=== PATIENT | female | born 1935 | race Caucasian/White ===

== ENCOUNTER → 2017-07-04 | Day surgery (SDC) | payer MEDICARE ==
[2017-07-01 11:42] LABS: BASO % 0.7 % (0.0-1.0); EOS # 0.1 10*3/uL (0.0-0.4); EOS % 2.3 % (1.0-4.0); HEMATOCRIT 34.4 % (37.0-47.0); HEMOGLOBIN 10.7 g/dl (12.0-16.0); LYMPH # 1.9 10*3/uL (1.3-4.4); LYMPH % 44.1 % (27.0-41.0); MEAN CORPUSCULAR HGB 29.6 pg (27.0-31.0); MEAN CORPUSCULAR HGB CONC 31.1 g/dl (33.0-37.0); MEAN PLATELET VOLUME 10.8 fl (9.6-12.3); MONO # 0.4 10*3/uL (0.1-1.0); MONO % 10.1 % (3.0-9.0); NEUT # 1.9 10*3/uL (2.3-7.9); NEUT % 42.8 % (47.0-73.0); PLATELET COUNT AUTOMATED 262 10*3/uL (130-400); RED BLOOD COUNT 3.62 10*6/uL (4.10-5.10); RED CELL DISTRI WIDTH 15.1 % (0-14.5); WHITE BLOOD COUNT 4.4 10*3/uL (4.8-10.8)
[2017-07-01 11:47] LABS: BILIRUBIN NEGATIVE (NEGATIVE); BLOOD NEGATIVE (NEGATIVE); CLARITY SL CLOUDY (CLEAR); COLOR YELLOW (YELLOW); GLUCOSE NEGATIVE (NEGATIVE); KETONE NEGATIVE (NEGATIVE); LEUKO ESTERASE NEGATIVE (NEGATIVE); NITRITE NEGATIVE (NEGATIVE); PH 5.5 (5.0-9.0); SPECIFIC GRAVITY >= 1.030 (1.005-1.030); UROBILINOGEN 0.2 E.U./dl (0.2-1.0)
[2017-07-01 12:11] LABS: CHLORIDE 104 mmol/L (98-107); CREATININE 0.71 mg/dL (0.55-1.02); POTASSIUM 3.9 mmol/L (3.5-5.1); SODIUM 140 mmol/L (136-145)
[2017-07-01 12:12] LABS: BUN 19 mg/dl (7-24)
[2017-07-01 12:15] LABS: ACT PARTIAL THROMBO TIME 22.7 SECONDS (20.8-31.5)
[2017-07-01 12:49] LABS: MUCOUS 2+
[2017-07-01 12:50] LABS: WBC 0-2 wbc/hpf (0-5)
[~2017-07-04] VITALS: Ht 160 cm; Wt 63.5 kg
[~2017-07-04] MED LIST: ATORVASTATIN CA20 M1 PO; LISINOPRIL30 MG PO; Lovenox40 MG/0.4 IJ; NORCO 5-325 TA1 EACH PO
--- NOTE | ~2017-07-04 | O ---
[place], [place] OPERATIVE NOTE NAME: WILDA LANGLEY UNIT #: [id number] ROOM: DOCTOR: JOHN PERKINS MD BIRTHDATE: [birth year] DOS: 07/04/2017 PREOPERATIVE DIAGNOSIS: Ovarian cancer. POSTOPERATIVE DIAGNOSIS: Ovarian cancer. PROCEDURE: Left internal jugular MediPort placement. SURGEON: John Perkins M.D. NOC TECHNICIAN: REMBERTO. ANESTHESIA: MAC with local. INDICATIONS: This is an 81-year-old lady who was recently diagnosed with ovarian cancer, who desires a MediPort placement for the purposes of chemotherapy. The procedure and its complications were explained to the patient in detail preoperatively. Complications that were discussed included but were not limited to bleeding, infection, hemothorax, pneumothorax and damage to underlying vital structures. She agreed to proceed. DESCRIPTION OF PROCEDURE: After identifying the patient, the patient was brought to the operating suite and laid in the supine position. After time-out procedure was called, the parts were then painted and draped in the usual sterile fashion and IV sedation was administered by the anesthesia team. With the help of an ultrasound, the left internal jugular vein was identified and accessed with the help of Seldinger technique. A guidewire was placed and was confirmed to be in good position via fluoroscopy. Thereafter, 2 inches below the left clavicle, local anesthesia was infiltrated in a transverse fashion and an incision was made and a small pocket was created for the placement of the port. Via this incision site, the catheter was passed on an introducer to the area in the neck where the incision was made for the internal jugular vein access site. Guidewire was passed through sheath and dilator and the catheter was placed via the sheath into the superior vena cava and was confirmed to be in good position on fluoroscopy. Thereafter, the catheter was cut to size and was attached to the port. The port itself was flushed with heparin and then aspirated and was found to have a good flow and good aspiration of blood. Thereafter, the port was then fixed to the underlying fascia with the help of 3-0 Prolene in an interrupted fashion. The subcutaneous tissue was approximated with the help of 3-0 Vicryl in a running fashion and the skin edges were approximated with the help of 4-0 Vicryl in a subcuticular running fashion. Dressings were placed. The patient tolerated the procedure well. There were no complications. The port was tested again by injecting heparin through the skin into the port and this was found to have good return of blood and also good flow. A chest x-ray was ordered for confirmation in the postoperative recovery room. There were no complications. Dr. John Perkins, the attending surgeon, was present throughout the operating case. [place], [place] OPERATIVE NOTE NAME: WILDA LANGLEY UNIT #: [id number] ROOM: DOCTOR: JOHN PERKINS MD BIRTHDATE: [birth year] John Perkins MD CM:OPRECORD:OPERATIVE NOTE [id number] JOHN PERKINS MD 07/04/17 1010 interface
[2017-07-04 08:40] VITALS: BP 132/74
[2017-07-04 09:43] VITALS: BP 118/55
[2017-07-04 09:58] VITALS: BP 122/59
[2017-07-04 10:13] VITALS: BP 112/79
== END | disposition home or self-care (01) ==
LOC: SDC 07-01 10:15
PROVIDERS: Surgery
DX: C56.2 Malignant neoplasm of left ovary (principal); I10 Essential (primary) hypertension; E78.00 Pure hypercholesterolemia, unspecified; Z90.49 Acquired absence of other specified parts of digestive tract; Z90.710 Acquired absence of both cervix and uterus; Z79.899 Other long term (current) drug therapy; Z98.890 Other specified postprocedural states

== ENCOUNTER → 2017-09-18 | Outpatient (CLI) | payer MEDICARE ==
[2017-09-18] VITALS (7 sets, daily range): BP systolic 103–126; BP diastolic 32–69
[~2017-09-18] MED LIST changes: +ADVIL200 M1 PO; +ALENDRONATE SOD70 M1 PO; +ASPIRIN81 M1 PO; +CLARITIN10 MG PO; +FLONASE ALLERG9.9 ML NAS; +OXYCODONE HCL5 MG PO; +VITAMIN D50000 UNIT PO
== END | disposition home or self-care (01) ==
LOC: TRNFUSION 01:00
DX: C56.1 Malignant neoplasm of right ovary (principal)

== ENCOUNTER 2017-10-28 11:55 | Inpatient (IN) | payer MEDICARE ==
[~2017-10-28] VITALS: Ht 160 cm; Wt 61.3 kg
--- NOTE | ~2017-10-28 | CON ---
[place], [place] REPORT OF CONSULTATION NAME: WILDA LANGLEY UNIT #: [id number] ROOM: [id number] DOCTOR: DESIRE SEARS MD BIRTHDATE: [birth year] DOS: 10/29/2017 HISTORY OF PRESENT ILLNESS: The patient is an pleasant 82-year-old woman with a history of ovarian cancer, undergoing chemotherapy. She started complaining of some vomiting, diarrhea, and nausea. She was supposed to get a chemotherapy yesterday, but was advised to go to the Emergency Room, where she was admitted for the above problem and consulted. PAST MEDICAL HISTORY: Significant for recent diagnosis of ovarian cancer, undergoing treatment; history of hypertension, hyperlipidemia, and left ovarian cyst. PAST SURGICAL HISTORY: Appendectomy, hysterectomy, removal of ovarian cyst, history of tonsillectomy, adenoidectomy, and left-sided MediPort on 06/17/2017. SOCIAL HISTORY: No smoking, drinking, or drug abuse. FAMILY HISTORY: Father diseased aged 90, cause unknown. Mother diseased aged 80 of Alzheimer's. ALLERGIES: CONTRAST, SULFA, CODEINE, AND STATINS. MEDICATIONS: On alendronate, aspirin, atorvastatin, calcium, vitamin D, Flonase, lisinopril, loratadine, and ondansetron. REVIEW OF SYSTEMS: CONSTITUTIONAL: No chills. No fatigue. No fever. No loss of appetite. No night sweats. No weakness. No weight loss. HEENT: No trouble swallowing. No loss of smell. No loss of hearing. No double vision. No pain. No discharge. ENT AND RESPIRATORY: No wheeze. No sore throat. No change in voice. No hearing loss. No nose bleed. No cough. No trouble breathing through nose. No shortness of breath. No coughing up blood. No epistaxis. CARDIOVASCULAR: No chest pain. No dizziness. No irregular heartbeat. No leg edema. No pain in legs while walking. No palpitations. No shortness of breath. DERMATOLOGIC: No acne. No hives. No laceration. No mole. No rash. ENDOCRINE: No cold intolerance. No diabetes. No fatigue. No hot flashes. No polydipsia. No polyuria. No urinating frequently. No weight loss. HEMATOLOGIC AND LYMPH: No fatigue. No easy bruising. GASTROENTEROLOGIC: No change in bowel habits. No indigestion. No frequent bloating. No vomiting blood. No abdominal cramping. No nausea. No heartburn. No vomiting. No abdominal pain. No dysphagia. No diarrhea. No constipation. No blood in stool. FEMALE REPRODUCTIVE: No vaginal itching. No difficulty urinating. No heavy periods. No dyspareunia. No sexually active. No dysmenorrhea. No pelvic pain. No breast pain. No nipple discharge. No abnormal vaginal discharge. No hot flashes. MUSCULOSKELETAL: No back pain. No muscle pain or weakness. No neck pain. No tingling/numbness. No swelling/bruising. No osteoporosis treatment. [place], [place] REPORT OF CONSULTATION NAME: WILDA LANGLEY UNIT #: [id number] ROOM: [facility] DOCTOR: DESIRE SEARS MD BIRTHDATE: [birth year] OPHTHALMOLOGIC: No double vision. No diminished vision. No loss of vision. UROLOGIC: No dysuria. No frequent nighttime urination. No irregular periods. No pain with urination. No difficulty urinating. No blood in urine. No frequent urination. No urinary incontinence. NEUROLOGIC: No loss of sensation in specific body area. No vertigo. No burning pain in feet. No trouble with balance. No trouble with coordination. No loss of consciousness. No loss of feeling/power. No confusion. No headache. No tingling/numbness. PSYCHOLOGIC: No tinnitus. No headaches. No shortness of breath. No weight decrease. No nausea. No vomiting. No abdominal discomfort. No constipation. No diarrhea. No depression. No anxiety. PHYSICAL EXAMINATION: GENERAL: A pleasant woman in no apparent distress. VITAL SIGNS: Stable. She is afebrile. HEENT: Oral mucosa appears intact. The external ears are normal in appearance. Nares are patent without lesions, exudates, erythema, or inflammation. Tongue is symmetrical. Uvula is midline. NECK AND THYROID: Neck supple without palpable masses. Trachea is midline. No thyromegaly. No carotid bruit or JVD. BREASTS: Normal. Nipples unremarkable. No drainage. No lumps felt on either side. HEART: Normal S1, S2, without significant murmur, rub, or gallop. LUNGS: Clear to auscultation and percussion with good air entry bilaterally. The patient is breathing easily without the use of accessory muscles. Diaphragmatic excursions are intact. ABDOMEN: No costovertebral angle tenderness. Soft. No organomegaly or masses. Nontender. No hernias present. Liver and spleen are not palpable. LYMPHATIC: No adenopathy noted in the cervical, supraclavicular, axillary, or inguinal regions. NEUROLOGIC: Nonfocal. Oriented to person, place, and time. MENTAL STATUS: Appropriate for mood and affect. PERIPHERAL PULSES: No varicosities. Femoral and pedal pulses are palpable. EXTREMITIES: Without cyanosis, clubbing, or edema. No gross anomalies. LABORATORY DATA: Sodium 137, potassium 4.2, chloride 103, bicarbonate 25, creatinine 1.78, calcium 8.8. AST is 18 and ALT is 23. White count of 2.2, hemoglobin 9.4, hematocrit 29.1, and platelet count of 226. ASSESSMENT: 1. Dehydration. 2. Diarrhea. 3. History of colon cancer. 4. Anemia of neoplastic disorder. 5. Leukopenia secondary to chemotherapy. PLAN: IV fluids transfusion p.r.n., antidiarrheal, etc. We will hold the chemotherapy till her overall condition improves. I had detailed discussion with the patient about it, seemed to understand it. Ample time was given to the patient to ask me questions. We will follow. [place], [place] REPORT OF CONSULTATION NAME: WILDA LANGLEY UNIT #: [id number] ROOM: [facility] DOCTOR: DESIRE SEARS MD BIRTHDATE: [birth year] Thanks for consulting and letting me to participate in the care of this interesting patient. DESIRE SEARS MD CM:CONSTR:REPORT OF CONSULTATION 1408 10/30/17 0215 interface
[2017-10-28 12:06] VITALS: BP 131/42
[2017-10-28 12:32] LABS: BASO % 0.5 % (0.0-1.0); HEMATOCRIT 29.1 % (37.0-47.0); HEMOGLOBIN 9.4 g/dl (12.0-16.0); LYMPH # 0.9 10*3/uL (1.3-4.4); LYMPH % 40.1 % (27.0-41.0); MEAN CELL VOLUME 92.7 fl (81.0-99.0); MEAN CORPUSCULAR HGB 29.9 pg (27.0-31.0); MEAN CORPUSCULAR HGB CONC 32.3 g/dl (33.0-37.0); MEAN PLATELET VOLUME 10.9 fl (9.6-12.3); MONO # 0.2 10*3/uL (0.1-1.0); MONO % 7.4 % (3.0-9.0); NEUT # 1.1 10*3/uL (2.3-7.9); NEUT % 51.5 % (47.0-73.0); PLATELET COUNT AUTOMATED 226 10*3/uL (130-400); RED BLOOD COUNT 3.14 10*6/uL (4.10-5.10); RED CELL DISTRI WIDTH 16.7 % (0-14.5); WHITE BLOOD COUNT 2.2 10*3/uL (4.8-10.8)
[2017-10-28 12:41] LABS: ACT PARTIAL THROMBO TIME 20.7 SECONDS (20.8-31.5)
[2017-10-28 12:53] LABS: ALBUMIN 3.6 gm/dl (3.1-4.5); ALKALINE PHOSPHATASE 48 U/L (45-117); BUN 50 mg/dl (7-24); CHLORIDE 103 mmol/L (98-107); CREATININE 1.78 mg/dL (0.55-1.02); POTASSIUM 4.2 mmol/L (3.5-5.1); SGOT/AST 18 IU/L (3-35); SGPT/ALT 23 U/L (12-78); SODIUM 137 mmol/L (136-145); TOTAL PROTEIN 6.8 gm/dL (6.4-8.2)
[2017-10-28 12:54] LABS: TROPONIN I < 0.015 ng/ml (<0.045)
[2017-10-28 15:06] LABS: BILIRUBIN NEGATIVE (NEGATIVE); BLOOD NEGATIVE (NEGATIVE); CLARITY CLEAR (CLEAR); COLOR YELLOW (YELLOW); GLUCOSE NEGATIVE (NEGATIVE); KETONE NEGATIVE (NEGATIVE); LEUKO ESTERASE TRACE (NEGATIVE); NITRITE NEGATIVE (NEGATIVE); PH 5.5 (5.0-9.0); SPECIFIC GRAVITY <= 1.005 (1.005-1.030); UROBILINOGEN 0.2 E.U./dl (0.2-1.0)
[2017-10-28 15:12] VITALS: BP 130/67
[2017-10-28 15:12] LABS: BACTERIA 2+; RBC 0-2 rbc/hpf (0-2)
[2017-10-28] MEDS ORDERED: ZOFRAN8 M1 PO (15:40)
[2017-10-28 18:15] VITALS: BP 130/67
[2017-10-28 20:00] VITALS: BP 127/46
[2017-10-29] VITALS: BP 107/42
[2017-10-29 06:24] LABS: HEMATOCRIT 24.7 % (37.0-47.0); HEMOGLOBIN 7.9 g/dl (12.0-16.0); MEAN CELL VOLUME 94.3 fl (81.0-99.0); MEAN CORPUSCULAR HGB 30.2 pg (27.0-31.0); MEAN PLATELET VOLUME 11.4 fl (9.6-12.3); PLATELET COUNT AUTOMATED 182 10*3/uL (130-400); RED BLOOD COUNT 2.62 10*6/uL (4.10-5.10); RED CELL DISTRI WIDTH 16.9 % (0-14.5); WHITE BLOOD COUNT 2.5 10*3/uL (4.8-10.8)
[2017-10-29 06:51] LABS: TOTAL CELLS COUNTED 100 #CELLS
[2017-10-29 06:52] LABS: ACANTHOCYTES FEW; OVALOCYTES FEW; PLATELET SUFFICIENCY NORMAL (NORMAL)
[2017-10-29 07:01] LABS: CHLORIDE 110 mmol/L (98-107); CHOLESTEROL 147 mg/dL (<200); CREATININE 0.93 mg/dL (0.55-1.02); HDL CHOLESTEROL 53 mg/dl (40-60); LDL CHOLESTEROL 68 mg/dL (9-159); PHOSPHOROUS 3.1 mg/dL (2.5-4.9); POTASSIUM 4.8 mmol/L (3.5-5.1); SODIUM 141 mmol/L (136-145); TRIGLYCERIDES 130 mg/dl (<150); VLDL CHOLESTEROL 26 mg/dL (6-40)
[2017-10-29 07:24] LABS: BUN 33 mg/dl (7-24)
[2017-10-29 07:40] LABS: VITAMIN D, 25-HYDROXY 28.2 ng/mL (30-100)
[2017-10-29 08:00] VITALS: BP 130/52
[2017-10-29 12:00] VITALS: BP 116/42
== END 2017-10-29 16:35 | disposition home or self-care (01) | DRG 683 ==
LOC: ED 11:55 → EDHOLD 15:29 → 4E 15:29
PROVIDERS: Internal Medicine Nephrology; Nurse Practitioner Family
DX: N17.0 Acute kidney failure with tubular necrosis (principal); C56.9 Malignant neoplasm of unspecified ovary; D70.1 Agranulocytosis secondary to cancer chemotherapy; D63.0 Anemia in neoplastic disease; E83.41 Hypermagnesemia; E86.0 Dehydration; E78.5 Hyperlipidemia, unspecified; I10 Essential (primary) hypertension; T45.1X5A Adverse effect of antineoplastic and immunosuppressive drugs, initial encounter; R53.81 Other malaise; R73.9 Hyperglycemia, unspecified; R27.0 Ataxia, unspecified; Y92.89 Other specified places as the place of occurrence of the external cause; Z88.2 Allergy status to sulfonamides; Z88.8 Allergy status to other drugs, medicaments and biological substances; Z91.041 Radiographic dye allergy status; Z79.899 Other long term (current) drug therapy; Z90.49 Acquired absence of other specified parts of digestive tract; Z90.710 Acquired absence of both cervix and uterus; Z82.0 Family history of epilepsy and other diseases of the nervous system; Z79.82 Long term (current) use of aspirin

== ENCOUNTER → 2017-11-07 | Outpatient (CLI) | payer MEDICARE ==
[2017-11-07] VITALS (10 sets, daily range): BP systolic 112–142; BP diastolic 40–71
[~2017-11-07] MED LIST changes: +ZOFRAN8 M1 PO
== END | disposition home or self-care (01) ==
LOC: TRNFUSION 01:30
DX: C56.1 Malignant neoplasm of right ovary (principal)

== ENCOUNTER → 2017-11-22 | Outpatient (CLI) | payer MEDICARE ==
[2017-11-22 09:37] LABS: HEMATOCRIT 31.6 % (37.0-47.0); MEAN CORPUSCULAR HGB 30.4 pg (27.0-31.0); MEAN CORPUSCULAR HGB CONC 31.6 g/dl (33.0-37.0); MEAN PLATELET VOLUME 10.5 fl (9.6-12.3); PLATELET COUNT AUTOMATED 195 10*3/uL (130-400); RED BLOOD COUNT 3.29 10*6/uL (4.10-5.10); RED CELL DISTRI WIDTH 17.3 % (0-14.5)
[2017-11-22 10:33] LABS: BASOPHILS 2 % (0-1); PLATELET SUFFICIENCY NORMAL (NORMAL); TOTAL CELLS COUNTED 100 #CELLS
== END | disposition home or self-care (01) ==
LOC: LAB 08:32
PROVIDERS: Internal Medicine Hematology & Oncology
DX: C56.1 Malignant neoplasm of right ovary (principal)

== ENCOUNTER → 2018-01-02 | Outpatient (CLI) | payer MEDICARE ==
[~2018-01-02] MED LIST changes: +CEFUROXIME AXE500 MG PO; +PYRIDIUM200 M1 PO
[2018-01-02 09:30] VITALS: BP 136/46
[2018-01-02 11:20] VITALS: BP 121/45
[2018-01-02 11:45] VITALS: BP 129/36
[2018-01-02 12:15] VITALS: BP 115/35
[2018-01-02 14:15] VITALS: BP 107/44
[2018-01-02 14:45] VITALS: BP 110/46
[2018-01-02 16:41] LABS: BASO % 0.2 % (0.0-1.0); EOS % 0.4 % (1.0-4.0); HEMATOCRIT 32.9 % (37.0-47.0); HEMOGLOBIN 11.1 g/dl (12.0-16.0); LYMPH # 1.6 10*3/uL (1.3-4.4); LYMPH % 33.3 % (27.0-41.0); MEAN CELL VOLUME 97.6 fl (81.0-99.0); MEAN CORPUSCULAR HGB 32.9 pg (27.0-31.0); MEAN CORPUSCULAR HGB CONC 33.7 g/dl (33.0-37.0); MEAN PLATELET VOLUME 10.7 fl (9.6-12.3); MONO # 0.4 10*3/uL (0.1-1.0); MONO % 8.8 % (3.0-9.0); NEUT # 2.8 10*3/uL (2.3-7.9); NEUT % 57.1 % (47.0-73.0); PLATELET COUNT AUTOMATED 242 10*3/uL (130-400); RED BLOOD COUNT 3.37 10*6/uL (4.10-5.10); RED CELL DISTRI WIDTH 19.4 % (0-14.5); WHITE BLOOD COUNT 4.9 10*3/uL (4.8-10.8)
== END | disposition home or self-care (01) ==
LOC: LAB 09:06 → TRNFUSION 09:30
PROVIDERS: Internal Medicine Hematology & Oncology
DX: C56.1 Malignant neoplasm of right ovary (principal)

== ENCOUNTER 2018-01-20 12:17 | Emergency (ER) | payer MEDICARE ==
[~2018-01-20] VITALS: Ht 160 cm; Wt 61.2 kg
[~2018-01-20 12:17] MED LIST changes: -CEFUROXIME AXE500 MG PO; -PYRIDIUM200 M1 PO
[2018-01-20 12:49] LABS: BILIRUBIN NEGATIVE (NEGATIVE); BLOOD TRACE-INTACT (NEGATIVE); CLARITY CLOUDY (CLEAR); COLOR YELLOW (YELLOW); GLUCOSE NEGATIVE (NEGATIVE); KETONE TRACE (NEGATIVE); LEUKO ESTERASE 2+ (NEGATIVE); NITRITE NEGATIVE (NEGATIVE); PH 5.5 (5.0-9.0); SPECIFIC GRAVITY 1.025 (1.005-1.030); UROBILINOGEN 0.2 E.U./dl (0.2-1.0)
[2018-01-20 13:00] LABS: BACTERIA 2+; MUCOUS 1+; WBC TNTC wbc/hpf (0-5)
[2018-01-20 13:15] LABS: BASO % 0.5 % (0.0-1.0); EOS % 0.3 % (1.0-4.0); HEMATOCRIT 37.4 % (37.0-47.0); HEMOGLOBIN 12.1 g/dl (12.0-16.0); LYMPH % 26.3 % (27.0-41.0); MEAN CELL VOLUME 101.1 fl (81.0-99.0); MEAN CORPUSCULAR HGB 32.7 pg (27.0-31.0); MEAN CORPUSCULAR HGB CONC 32.4 g/dl (33.0-37.0); MEAN PLATELET VOLUME 11.4 fl (9.6-12.3); MONO # 0.2 10*3/uL (0.1-1.0); MONO % 6.2 % (3.0-9.0); NEUT # 2.6 10*3/uL (2.3-7.9); NEUT % 66.4 % (47.0-73.0); PLATELET COUNT AUTOMATED 135 10*3/uL (130-400); RED CELL DISTRI WIDTH 17.2 % (0-14.5); WHITE BLOOD COUNT 3.9 10*3/uL (4.8-10.8)
[2018-01-20 13:24] LABS: ACT PARTIAL THROMBO TIME 21.1 SECONDS (20.8-31.5)
[2018-01-20 13:33] LABS: ALBUMIN 3.8 gm/dl (3.1-4.5); ALKALINE PHOSPHATASE 51 U/L (45-117); BUN 31 mg/dl (7-24); CHLORIDE 101 mmol/L (98-107); CREATININE 0.96 mg/dL (0.55-1.02); POTASSIUM 3.6 mmol/L (3.5-5.1); SGOT/AST 18 IU/L (3-35); SGPT/ALT 25 U/L (12-78); SODIUM 140 mmol/L (136-145); TOTAL PROTEIN 7.3 gm/dL (6.4-8.2)
[2018-01-20] MEDS ORDERED: CEFUROXIME AXE500 MG PO (13:35)
[2018-01-20] MEDS ORDERED: PYRIDIUM200 M1 PO (13:35)
== END 2018-01-20 13:36 | disposition home or self-care (01) ==
LOC: ED 12:17
PROVIDERS: Emergency Medicine
DX: N39.0 Urinary tract infection, site not specified (principal); I12.9 Hypertensive chronic kidney disease with stage 1 through stage 4 chronic kidney disease, or unspecified chronic kidney disease; N18.3 Chronic kidney disease, stage 3 (moderate); E78.5 Hyperlipidemia, unspecified; Z88.2 Allergy status to sulfonamides; Z88.8 Allergy status to other drugs, medicaments and biological substances; Z79.899 Other long term (current) drug therapy; Z79.82 Long term (current) use of aspirin

== ENCOUNTER → 2018-03-03 | Outpatient (CLI) | payer MEDICARE ==
[~2018-03-03] MED LIST changes: +CEFUROXIME AXE500 MG PO; +PYRIDIUM200 M1 PO
== END | disposition home or self-care (01) ==
LOC: LAB 11:39 → MEDIPORT 12:00
DX: C56.1 Malignant neoplasm of right ovary (principal)

== ENCOUNTER 2021-03-01 15:05 | Emergency (ER) | payer MEDICARE ==
[~2021-03-01] VITALS: Wt 61.2 kg
== END 2021-03-01 18:55 | disposition home or self-care (01) ==
LOC: ED 15:05
DX: S80.01XA Contusion of right knee, initial encounter (principal); Z90.49 Acquired absence of other specified parts of digestive tract; Z90.710 Acquired absence of both cervix and uterus; Z98.890 Other specified postprocedural states; Z79.82 Long term (current) use of aspirin; Z79.899 Other long term (current) drug therapy; Z88.2 Allergy status to sulfonamides; Z88.8 Allergy status to other drugs, medicaments and biological substances; W18.30XA Fall on same level, unspecified, initial encounter; Y93.89 Activity, other specified; Y92.89 Other specified places as the place of occurrence of the external cause; Y99.9 Unspecified external cause status

== ENCOUNTER → 2022-01-08 | Outpatient (CLI) | payer MEDICARE | END | disposition home or self-care (01) | LOC: RAD 14:41 | PROVIDERS: ATTEND Internal Medicine | DX: M16.0 Bilateral primary osteoarthritis of hip (principal); M51.37 Other intervertebral disc degeneration, lumbosacral region ==

== ENCOUNTER 2022-02-16 10:14 | Inpatient (IN) | payer MEDICARE ==
[~2022-02-16] VITALS: Ht 165.1 cm; Wt 63.0 kg
[2022-02-16 10:18] VITALS: BP 137/62
[2022-02-16 10:56] LABS: HEMATOCRIT 38.2 % (37.0-47.0); MEAN CELL VOLUME 93.4 fl (81.0-99.0); MEAN CORPUSCULAR HGB 29.8 pg (27.0-31.0); MEAN CORPUSCULAR HGB CONC 31.9 g/dl (33.0-37.0); MEAN PLATELET VOLUME 10.5 fl (9.6-12.3); PLATELET COUNT AUTOMATED 205 10*3/uL (130-400); RED BLOOD COUNT 4.09 10*6/uL (4.10-5.10); RED CELL DISTRI WIDTH 13.6 % (0-14.5); WHITE BLOOD COUNT 8.3 10*3/uL (4.8-10.8)
[2022-02-16 10:57] LABS: MANUAL DIFF REFLEX YES
[2022-02-16 11:07] LABS: ACT PARTIAL THROMBO TIME 24.8 SECONDS (20.0-32.1)
[2022-02-16 11:13] LABS: ALKALINE PHOSPHATASE 193 U/L (45-117); BUN 18 mg/dl (7-24); CHLORIDE 102 mmol/L (98-107); CREATININE 0.75 mg/dL (0.55-1.02); LIPASE 60 U/L (73-393); POTASSIUM 3.8 mmol/L (3.5-5.1); SGOT/AST 19 IU/L (3-35); SGPT/ALT 20 U/L (12-78); SODIUM 136 mmol/L (136-145); TOTAL PROTEIN 7.2 gm/dL (6.4-8.2)
[2022-02-16 11:16] LABS: PLATELET SUFFICIENCY NORMAL (NORMAL); TOTAL CELLS COUNTED 100 #CELLS
[2022-02-16 13:08] LABS: BILIRUBIN Negative (Negative); BLOOD Negative (Negative); CLARITY Clear (Clear); COLOR Yellow (Yellow); GLUCOSE Negative (Negative); KETONE 1+ (Negative); LEUKO ESTERASE Negative (Negative); NITRITE Negative (Negative); PH 5.5 (4.5-8.0); UROBILINOGEN 0.2 E.U./dl (0.0-1.0)
[2022-02-16 13:17] LABS: BACTERIA TRACE; MUCOUS TRACE
[2022-02-16 14:54] VITALS: BP 142/48
[2022-02-16 20:00] VITALS: BP 134/56
[2022-02-17] VITALS: BP 122/58
[2022-02-17 03:45] VITALS: BP 110/60
[2022-02-17 05:45] LABS: BUN 19 mg/dl (7-24); CHLORIDE 107 mmol/L (98-107); CHOLESTEROL 145 mg/dL (<200); CREATININE 0.81 mg/dL (0.55-1.02); POTASSIUM 3.8 mmol/L (3.5-5.1); SGOT/AST 19 IU/L (3-35); SGPT/ALT 16 U/L (12-78); SODIUM 140 mmol/L (136-145); TOTAL PROTEIN 5.9 gm/dL (6.4-8.2); TRIGLYCERIDES 116 mg/dl (<150)
[2022-02-17 05:50] LABS: ALKALINE PHOSPHATASE 146 U/L (45-117); FREE T4 1.06 ng/dl (0.76-1.46); LDL CHOLESTEROL 55 mg/dL (9-159); THYROID STIM HORMONE (HS) 0.757 uIU/ml (0.358-4.75)
[2022-02-17 06:08] LABS: BASO % 0.1 % (0.0-1.0); EOS # 0.4 10*3/uL (0.0-0.4); EOS % 4.5 % (1.0-4.0); HEMATOCRIT 34.9 % (37.0-47.0); LYMPH # 0.7 10*3/uL (1.3-4.4); LYMPH % 9.2 % (27.0-41.0); MEAN CELL VOLUME 94.8 fl (81.0-99.0); MEAN CORPUSCULAR HGB 30.2 pg (27.0-31.0); MEAN CORPUSCULAR HGB CONC 31.8 g/dl (33.0-37.0); MEAN PLATELET VOLUME 11.1 fl (9.6-12.3); MONO # 0.7 10*3/uL (0.1-1.0); MONO % 8.5 % (3.0-9.0); NEUT # 6.2 10*3/uL (2.3-7.9); NEUT % 77.3 % (47.0-73.0); PLATELET COUNT AUTOMATED 177 10*3/uL (130-400); RED BLOOD COUNT 3.68 10*6/uL (4.10-5.10); RED CELL DISTRI WIDTH 13.9 % (0-14.5)
[2022-02-17 08:00] VITALS: BP 112/48
[2022-02-17 12:00] VITALS: BP 117/44
[2022-02-17 16:00] VITALS: BP 130/53
[2022-02-17 20:02] VITALS: BP 140/55
[2022-02-18 00:17] VITALS: BP 118/55
[2022-02-18 04:18] VITALS: BP 124/66
[2022-02-18 05:51] LABS: BUN 16 mg/dl (7-24); CHLORIDE 107 mmol/L (98-107); CREATININE 0.69 mg/dL (0.55-1.02); POTASSIUM 3.9 mmol/L (3.5-5.1); SODIUM 142 mmol/L (136-145)
[2022-02-18 06:05] LABS: BASO % 0.2 % (0.0-1.0); EOS # 0.5 10*3/uL (0.0-0.4); EOS % 7.5 % (1.0-4.0); HEMATOCRIT 33.5 % (37.0-47.0); LYMPH # 1.4 10*3/uL (1.3-4.4); LYMPH % 22.2 % (27.0-41.0); MEAN CELL VOLUME 95.7 fl (81.0-99.0); MEAN CORPUSCULAR HGB 30.3 pg (27.0-31.0); MEAN CORPUSCULAR HGB CONC 31.6 g/dl (33.0-37.0); MEAN PLATELET VOLUME 11.2 fl (9.6-12.3); MONO # 0.8 10*3/uL (0.1-1.0); MONO % 12.9 % (3.0-9.0); NEUT # 3.7 10*3/uL (2.3-7.9); NEUT % 56.9 % (47.0-73.0); PLATELET COUNT AUTOMATED 154 10*3/uL (130-400); RED CELL DISTRI WIDTH 13.8 % (0-14.5); WHITE BLOOD COUNT 6.5 10*3/uL (4.8-10.8)
[2022-02-18 08:00] VITALS: BP 136/52
[2022-02-18] MEDS ORDERED: ONDANSETRON HYDR4 M1 PO (11:22)
== END 2022-02-18 14:05 | disposition home or self-care (01) | DRG 391 ==
LOC: ED 10:14 → EDHOLD 14:14 → 5E 14:14 → 4E 14:14 → 5E 14:41 → 4E 02-17 11:44
PROVIDERS: Emergency Medicine; Family Medicine; Student in an Organized Health Care Education/Training Program; ADMIT Internal Medicine; ATTEND Internal Medicine
DX: K52.9 Noninfective gastroenteritis and colitis, unspecified (principal); E43 Unspecified severe protein-calorie malnutrition; R65.10 Systemic inflammatory response syndrome (SIRS) of non-infectious origin without acute organ dysfunction; E86.0 Dehydration; E55.9 Vitamin D deficiency, unspecified; N18.30 Chronic kidney disease, stage 3 unspecified; E78.5 Hyperlipidemia, unspecified; R73.9 Hyperglycemia, unspecified; I12.9 Hypertensive chronic kidney disease with stage 1 through stage 4 chronic kidney disease, or unspecified chronic kidney disease; Z20.822 Contact with and (suspected) exposure to COVID-19; Z88.2 Allergy status to sulfonamides; Z88.8 Allergy status to other drugs, medicaments and biological substances; Z91.041 Radiographic dye allergy status; Z90.49 Acquired absence of other specified parts of digestive tract; Z90.710 Acquired absence of both cervix and uterus; Z81.8 Family history of other mental and behavioral disorders; Z85.43 Personal history of malignant neoplasm of ovary; Z68.24 Body mass index [BMI] 24.0-24.9, adult

== ENCOUNTER → 2024-10-05 | Outpatient (CLI) | payer MEDICARE ==
[~2024-10-05] MED LIST changes: +ONDANSETRON HYDR4 M1 PO
== END | disposition home or self-care (01) ==
LOC: LAB 10:14
PROVIDERS: ATTEND Internal Medicine
DX: R05.9 Cough, unspecified (principal); R09.89 Other specified symptoms and signs involving the circulatory and respiratory systems; Z20.822 Contact with and (suspected) exposure to COVID-19